=== PATIENT | female | born 1960 | race Caucasian/White ===

== ENCOUNTER 2024-07-17 11:03 | Outpatient (AMB) | payer MEDICARE, MEDICAID, SELFPAY ==
--- NOTE | 2024-07-17 11:31 | A.OFFVIS_ITS ---
Intake Visit Reasons: Right shoulder pain Intake Note: Brenda is a 63 year old female who presents with complaints of progressively worsening right shoulder pain. She describes her pain as sharp in nature. Most of the pain is along the lateral aspect of her right shoulder. She denies any weakness. She has had cortisone injections in the past which gave her fairly good relief. She has tried Tylenol and anti-inflammatory medicines which gave her minimal relief. She continues to play golf for exercise. Allergies No Known Allergies Allergy (Verified 07/17/24 11:31) Physical Exam Const Other: Well-nourished well-developed very friendly female awake alert and oriented x3 in no acute distress Extrem Other: Bilateral upper extremity examination shows good capillary refill, no skin lesions noted, normal sensation light touch Right shoulder examination shows slightly decreased range of motion when co mpared to her left shoulder, 4+ out of 5 strength with supraspinatus testing, positive impingement signs, tenderness over her acromioclavicular joint, no instability Office Procedures Joint Injection/Aspiration Joint Injection/Aspiration Primary Site: right shoulder Prep: site was prepped using aseptic technique Injected: 40 mg of, DepoMedrol and 1% plain lidocaine Procedure: The patient tolerated the procedure well Coding 19282 - Large joint Procedure code (CPT) selection complete Assessment & Plan Assessment & Plan (1) Impingement of right shoulder: Code(s): M25.811 - Other specified joint disorders, right shoulder Category: Medical (2) Right shoulder pain: Code(s): M25.511 - Pain in right shoulder Category: Medical Plan Ms. Pettit presents with right shoulder pain due to impingement syndrome. I had a lengthy discussion with the patient regarding the treatment options. The risks and benefits of a right shoulder cortisone injection were discussed at length with the patient. The patient wished to proceed. She tolerated the injection well. She will continue with her home stretching program. She will contact me prior to her follow-up appointment in 3 months should any questions or concerns arise. Feel free to call me at any time should questions regarding her orthopedic management arise. I spent 20 minutes in reviewing the patient's records and imaging studies, seeing the patient and documenting in the medical record. Orders: Orders XR shoulder RT min 2V Today M25.511 - Pain in right shoulder AMB Joint Injection/Aspiration Today M25.811 - Other specified joint disorders, right shoulder Coding Level of Care Code Est Pt Level 3 (27218) Complex EM visit Add On G2211 Diagnoses Impingement of right shoulder M25.811 Right shoulder pain M25.511 CPT Codes Coding - 66347 Large joint: 04011 - Large joint ([id number])
== END 2024-07-17 11:44 | disposition home or self-care (01) ==
PROVIDERS: Visit Provider Orthopaedic Surgery
DX: M25.811 Other specified joint disorders, right shoulder (principal); M25.511 Pain in right shoulder
CPT/HCPCS: 20610; 99213

== ENCOUNTER 2024-07-17 14:28 | Outpatient (REF) | payer MEDICARE, MEDICAID, SELFPAY ==
--- NOTE | ~2024-07-17 | XR_ITS ---
EXAMINATION: XR SHOULDER, RIGHT CLINICAL INFORMATION: Right shoulder pain. COMPARISON: None available. TECHNIQUE: AP internal rotation and scapular Y views of the right shoulder. FINDINGS: The study is somewhat limited, as no frontal view of the shoulder in external rotation is submitted. The bones and soft tissues appear unremarkable. No fracture identified. Glenohumeral and acromioclavicular alignment is anatomic with normal joint space. No abnormal soft tissue calcification is appreciated on this limited study. Incidentally visualized lower cervical/upper thoracic anterior fixation plate and screws. No evidence of hardware fracture or loosening. XR/XR shoulder RT min 2V IMPRESSION: Findings as above. Electronically signed by: Prabhu Butler MD 07/17/2024 03:50 PM EDT
== END 2024-07-17 14:29 | disposition home or self-care (01) ==
LOC: HO.HOSX 14:28
PROVIDERS: Visit Provider Orthopaedic Surgery
DX: M25.511 Pain in right shoulder (principal); M25.811 Other specified joint disorders, right shoulder
CPT/HCPCS: 20610; 73030; 99212; J1010; J2003

== ENCOUNTER 2024-10-17 11:17 | Outpatient (AMB) | payer MEDICARE, MEDICAID, SELFPAY ==
--- NOTE | 2024-10-17 11:20 | MHC.OFFVIS ---
Vital Signs 10/17/24 11:21 Height 5 ft 6.14 in Weight 325 lb 9.964 oz BMI 52.3 Intake Visit Reasons: Right shoulder pain Intake Note: Brenda is a 64 year old female who presents with complaints of progressively worsening right shoulder pain. She describes her pain as sharp in nature. She has had cortisone injections in the past which gave her fairly good relief. She denies any weakness. She wishes to hold off on surgery for as long as possible. She has tried Tylenol and anti-inflammatory medicines which gave her minimal relief. Allergies No Known Allergies Allergy (Verified 10/17/24 11:20) Physical Exam Vital Signs: BMI result Body Mass Index 52.3 Const Other: Well-nourished well-developed very friendly female awake alert and oriented x3 in no acute distress Extrem Other: Bilateral upper extremity examination shows good capillary refill, no skin lesions noted, normal sensation light touch Right shoulder examination shows almost full range of motion when compared to her left shoulder, 4+ out of 5 strength with supraspinatus testing, positive impingement signs, no instability Office Procedures AMB Joint Injection/Aspiration Joint Injection/Aspiration Primary Site: right shoulder Prep: site was prepped using aseptic technique Injected: 40 mg of, DepoMedrol and 1% plain lidocaine Procedure: The patient tolerated the procedure well Coding 18686 - Large joint Procedure code (CPT) selection complete Assessment & Plan Assessment & Plan (1) Impingement of right shoulder: Code(s): M25.811 - Other specified joint disorders, right shoulder Category: Medical (2) Right shoulder pain: Code(s): M25.511 - Pain in right shoulder Category: Medical Plan Ms. Pettit presents with right shoulder pain due to impingement syndrome. The risks and benefits of a right shoulder cortisone injection were discussed at length with the patient. The patient wished to proceed. She tolerated the injection well. She will continue with her [id number] exercises to prevent stiffness. She will contact me prior to her follow-up appointment in 3 months should any questions or concerns arise. Feel free to call me at any time should questions regarding her orthopedic management arise. I spent 22 minutes in reviewing the patient's records and imaging studies, seeing the patient and documenting in the medical record. Orders: Orders AMB Joint Injection/Aspiration Today M25.811 - Other specified joint disorders, right shoulder Coding Level of Care Code Est Pt Level 3 (74032) Complex EM visit Add On G2211 Diagnoses Impingement of right shoulder M25.811 Right shoulder pain M25.511 CPT Codes Coding - 05036 Large joint: 67332 - Large joint ([id number])
[2024-10-17 11:21] VITALS: BMI 52.3
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
--- OUTSIDE RECORDS SUMMARY | 2024-10-17 11:39 | XMS_ITS | Data Portability ---
Author Organization [facility] Address [address] [facility] [address] [place] [address] Care Team Providers Care Data Center Consultant Name Role Phone SALAZAR BILLS Primary Care Provider Assessment Encounter Date Assessment Date Assessment LastModified by Organization Details LastModified Time 08/17/2016 08/17/2016 Brenda Pettit is a 55 year old woman with complaints of pain in her right thigh which started in 2006 and she is having an exacerbation of her pain for the past two years. On exam, she has good range of motion of her lumbar spine. Straight leg raising test is negative. I recommend an EMG/NCV study to elucidate the etiology of her pain. She will follow up to the review the results and formulate treatment plans. [email or web address] Not available 08/22/2016 15:21:09 09/24/2016 09/24/2016 Brenda Pettit is a 55 year old woman with complaints of pain in her right thigh which started in 2006 and she is having an exacerbation of her pain for the past two years. On exam, she has good range of motion of her lumbar spine. Straight leg raising test is negative. 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 I have given her a sample of Gralise to trial and she will call in two weeks. I will also refer her to neurology for further treatment plans . [email or web address] Not available 10/15/2016 11:21:57 10/28/2016 10/28/2016 Brenda Pettit is a 56 year old woman with complaints of pain in her right thigh which started in 2006 and she is having an exacerbation of her pain for the past two years. On exam, she has good range of motion of her lumbar spine. Straight leg raising test is negative. She is here for a follow up after trialing sample of gralise 600mg with the evening meal and reports good ongoing pain benefit. 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 I will prescribe Gralise 600mg . She will follow up in December after neurology appointment. [email or web address] Not available 10/29/2016 09:24:31 12/16/2016 12/16/2016 Brenda Pettit is a 56 year old woman with complaints of pain in her right thigh which started in 2006 and she is having an exacerbation of her pain for the past two years. On exam, she has good range of motion of her lumbar spine. Straight leg raising test is negative. She has stopped Gralise as she feels she was not getting any pain benefit and was feeling drowsy during the day. 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 She has seen neurology and is having medication adjustments done. She wants to trial Lateral femoral cutaneous nerve block again and get a cryoablation done. I have explained that I do not do cryoablations in my office and have advised her to follow neurology referral for the same. She can follow up with me as needed. [email or web address] Not available 12/30/2016 20:37:31 Plan of Treatment Reminders Order Date Submit Date Provider Last Modified By Organization Details Last Modified Time Details Appointments None recorded. Lab None recorded. Referral neurologist referral 2015 017 [facility], [address], [address], 17:02:56 Procedures None recorded. Surgeries None recorded. Imaging None recorded. Medication Orders Gralise 600 mg tablet,exte nded release 2016 017 [email or web address] [id number], [address] [facility], [place], [place], [id number], 13:55:15 Patient TargetsNo targets recorded. Patient Instructions Encounter Date Encounter Id Patient Instructions Last Modified By Organization Details Last Modified Time 08/17/2016 [id number] She was advised to continue with activities as tolerated. [email or web address] Not available 08/22/2016 15:21:27 09/24/2016 [id number] She was advised to continue with activities as tolerated. [email or web address] Not available 10/07/2016 14:41:56 10/28/2016 [id number] She was advised to continue with activities as tolerated. [email or web address] Not available 10/29/2016 09:22:47 12/16/2016 [id number] She was advised to continue with activities as tolerated. [email or web address] Not available 12/30/2016 20:33:50 Reason for Referral Neurologist Referral for Per ipheral neuropathic pain Patient has pain in right lower extremity. EMG/NCV study shows poly neuropathy. Referring Physician: Shahram Song, Pain Management, Encounter Date: 09/24/2016 Results Created Date Observation Date Name Description Value Unit Range Abnormal Flag Note LastModifiedBy Organization Detail LastModifiedTime 09/22/20 16 09/17/2016 nerve condu ction study /EMG (PROC ) No observ ation record ed. [email or web address] [address], [address], 09/27/2016 14:17:15 Result Notes None recorded. Procedures Surgical History Date Name Laterality Status Provider Name and Address Organization Details Recorded Time 08/10/20 11 Joint Replacement completed Lexus Brunson [facility] - [facility] 08/17/2016 14:38:13 Joint Replacement completed Lexus Brunson [facility] - [facility] 08/17/2016 14:39:07 Hernia Repair completed Lexus Brunson [facility] - [facility] 08/17/2016 14:39:33 Hysterectomy completed Lexus Brunson [facility] - [facility] 08/17/2016 14:39:54 Imaging Results Imaging Date Name Status LastModified by Organiz ation Details LastModified Time 09/17/2016 nerve conduction study/EMG (PROC) completed [email or web address], [address], 09/27/2016 14:17:15 Procedure Notes None recorded. Medical Equipment None Reported. Allergies Allergen ID Allergen Name Allergen Category Reaction Reaction Severity Criticality Documentation Date Start Date Code Code System Note Provider Name and Address Organization Details Recorded Time 89763 adhesive environme nt,medica tion other Not available Not available 08/17/2016 Skin break down Lexus william MA - [facility] 6 14:29:32 99461 succinylc holine Not available Not available Not available Not available 08/17/2016 82156 RxNorm Deep jimbo givens Lexus william MA - [facility] 6 14:30:27 Medications Name Sig Start Date Stop Date Status Note LastModified by Organization Details LastModified Time fluoxetine 40 mg capsule TK ONE C PO D 12/16 completed Not Available Not Available Not Available amoxicillin 500 mg capsule 12/16 completed Not Available Not Available Not Available venlafaxine ER 37.5 mg capsule,ext ended release 24 hr 09/24 completed Not Available Not Available Not Available venlafaxine ER 75 mg capsule,ext ended release 24 hr 08/17 completed Not Available Not Available Not Available ibuprofen 800 mg tablet TK 1 T PO TID WITH MEALS PRF JOINT PAIN active Not Available Not Available No t Available hydrocodone 5 mg-acetamin ophen 325 mg tablet active Not Available Not Available No t Available prednisone 20 mg tablet 09/24 completed Not Available Not Available Not Available oxcarbazepi ne 300 mg tablet TK 1 T PO BID active pt taking 1 tab in AM and 2 tabs in PM Not Available Not Available Not Available doxepin 10 mg capsule 09/24 completed Not Available Not Available Not Available oxycodone 15 mg tablet active Not Available Not Available Not Available oxycodone-a cetaminophe n 5 mg-325 mg tablet 09/24 completed Not Available Not Available Not Available fluoxetine 20 mg tablet active Not Available Not Available Not Available mupirocin 2 % topical ointment 08/17 completed Not Available Not Available Not Available polyethylen e glycol 3350 17 gram/dose oral powder 09/24 completed Not Available Not Available Not Available amoxicillin 875 mg-potassiu m clavulanate 125 mg tablet 09/24 completed Not Available Not Available Not Available Gralise 600 mg tablet,exte nded release Take 1 tablet every day by oral route at dinner for 30 days. 12/16 completed Not Available Not Available Not Available Vitals Date Recorded Heart rate Oxygen saturation Oxygen saturation in Arterial blood by Pulse oximetry Body height Body weight Body mass index (BMI) Systolic blood pressure Diastolic blood pressure Provider Name and Address Organization Details Last Updated DateTime 6 92 /min 97 % 97 % 167.64 cm 606587. 66 g 57.9 kg/m2 189 mm[Hg] 81 mm[Hg] Lexus Brunson MA - [facility] 6 14:25:47 Date Recorded Body height Heart rate Oxygen saturation Oxygen saturation in Arterial blood by Pulse oximetry Systolic blood pressure Diastolic blood pressure Provider Name and Address Organization Details Last Updated DateTime 6 167.64 cm 87 /min 98 % 98 % 172 mm[Hg] 61 mm[Hg] Lexus Brunson MA - [facility] 6 10:55:47 Date Recorded Body height Heart rate Oxygen saturation Oxygen saturation in Arterial blood by Pulse oximetry Systolic blood pressure Diastolic blood pressure Provider Name and Address Organization Details Last Updated DateTime 7 167.64 cm 77 /min 98 % 98 % 161 mm[Hg] 66 mm[Hg] Lexus Brunson MA - [facility] 7 13:35:26 Date Recorded Body height Heart rate Oxygen saturation Oxygen saturation in Arterial blood by Pulse oximetry Systolic blood pressure Diastolic blood pressure Provider Name and Address Organization Details Last Updated DateTime 7 167.64 cm 88 /min 97 % 97 % 160 mm[Hg] 59 mm[Hg] Lexus Brunson MA - [facility] 7 13:52:24 Social History Question Answer Notes LastModified by Organizat ion Details LastModified Time Tobacco Smoking Status Never Smoker Not Available [facility] 03:16:12 What Is Your Level Of Alcohol Consumption? None [id number] Information not available 07/25/2020 Are You Currently Employed? No [id number] Information not available 07/25/2020 Which Illicit Or Recreational Drugs Have You Used? No [id number] Information not available 07/25/2020 Live Alone Or With Others? Alone Information not available 08/17/2016 Marital Status Informatio n not available 08/17/2016 Sex: Unknown Functional Status None recorded. Mental Status None recorded. Family History Relationship Description Onset Age of this Age Resolved Age Notes LastModified by Organization Details LastModified Time Mother Diabetes mellitus [email or web address] Not available 2015 14:35:18 Brother Diabetes mellitus [email or web address] Not available 2015 14:35:18 Father Diabetes mellitus [email or web address] Not available 2015 14:35:18 Medical History Condition Response Headache Y Cancer Y Arthritis Y Gynecological HistoryNo gynecological history recorded. Obstetrics History GPAL:G 0 P 0 0 0 0 Past Encounters Encounter ID Performer Location Encounter Start Date Encounter Closed Date Diagnosis/Indication Diagnosis SNOMED-CT Code Diagnosis ICD10 Code Diagnosis Note [id number] Shahram Song MD PAIN OFFICE [address] [place] [address] 08/17/2016 13:33:46 08/22/2016 15:28:24 Pain in lower limb 06126187 M79.604 Peripheral neuropathic pain 850053476 M79.2 [id number] Shahram Song MD PAIN OFFICE [address] [place] [address] 09/24/2016 10:49:06 10/07/2016 14:52:21 Pain in lower limb 83682747 M79.604 Peripheral neuropathic pain 686919041 M79.2 [id number] Shahram Song MD PAIN OFFICE [address] [place] [address] 10/28/2016 13:14:48 10/29/2016 09:33:55 Pain in lower limb 82646629 M79.604 Peripheral neuropathic pain 367534068 M79.2 [id number] Shahram Song MD PAIN OFFICE [address] [place] [address] 12/16/2016 13:13:09 12/30/2016 20:38:30 Pain in lower limb 82884079 M79.604 Peripheral neuropathic pain 748700972 M79.2 Health Concerns Section Related Observation LastModified by Organization Detai ls LastModified Time None Recorded Concern Status LastModified by Organization Details LastModified Time None Recorded Advance Directives Directive None Recorded Payers Encounter Date Sequence Insurance Name Policy Number Policy Cardenas Covered Member ID Cardenas Member ID Guarantor Name 08/17/2016 1 MEDICARE B-[place]: [facility] [employer] Brenda Pettit [id number] Brenda Pettit 08/17/2016 2 [place] Brenda Arbour [id number] Brenda Arbour 09/24/2016 1 [place] [employer] Brenda L Arbour [id number] Brenda Arbour 09/24/2016 2 [place] Brenda Arbour [id number] Brenda Arbour 10/28/2016 1 [place] [employer] Brenda L Arbour [id number] Brenda Arbour 10/28/2016 2 [place] Brenda Arbour [id number] Brenda Arbour 12/16/2016 1 [place] [employer] Brenda L Arbour [id number] Brenda Arbour 12/16/2016 2 [place] Brenda Arbour [id number] Brenda Arbour Notes Date Note Type Note Provider Name and Address Organization Details Recorded Time 08/17/2016 text/html Brenda Pettit is a 55 year old woman with complaints of pain in her right lower extremity. She states she has been having pain for he past 7 years with exacerbation for the past two years . She is S/P total knee replacement bilaterally. Right knee was in 2014 and left knee was done in 2010. After the left knee replacement , she reports feeling a pop in the right groin region followed by a lump and intense pain. The pain is persisting in her right thigh with numbness in her right leg. She describes the pain as sharp stabbing, shooting pain with numbness which occurs on standing. Current pain level is high. Pain is aggravated by standing and sitting upright. Pain is relieved by rest. She states she wears only loose clothing. She has no history of low back pain, bladder or bowel incontinence.She had been seen at [facility] pain management in 2011 and had a lateral femoral cutaneous nerve block under ultrasound guidance by Dr. Porter which she states did not help.She takes Ibuprofen, vicodin and oxcarbazepine with some pain benefit. 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 Shahram Song MD [address] [facility] , [address], [place], [address], [facility] 10/15/2016 11:22:01 10/28/2016 text/html She is here for a follow up after trialing gralise for her neuropathic pain in her lower extremities. She reports good pain benefit. She is taking 600mg Gralise with the evening meal. She reports feeling slightly tired during the day. She states she is cleaning the house and is active around the house. She has no history of bladder or bowel incontinence. Shahram Song MD [address] [facility] , [facility] [address], [place], [address], [facility] 10/29/2016 11:55:48 12/16/2016 text/html She is here for a follow up. She has seen neurologist . She has recommended increasing Oxcarbazepine and to see if her leg pain improves with the increased dose. She is working with her PCP who has prescribed Oxcarbazepine . She stopped the Gralise as it was making her too tired. She states she is trying to lose weight. She wants to revisit lateral femoral cutaneous nerve block and is interested in RFA or cryoablation. Shahram Song MD [address] [facility] , [facility] [address], [place], [address], [facility] 01/03/2017 09:47:30 OBGyn Episode No OBEpisode recorded.
== END 2024-10-17 11:53 | disposition home or self-care (01) ==
PROVIDERS: Visit Provider Orthopaedic Surgery
DX: M25.811 Other specified joint disorders, right shoulder (principal); M25.511 Pain in right shoulder
CPT/HCPCS: 20610; 99213

== ENCOUNTER → 2024-10-17 11:17 | Outpatient (BNVA) | payer MEDICARE, MEDICAID, SELFPAY | PROVIDERS: Visit Provider Orthopaedic Surgery | DX: M25.811 Other specified joint disorders, right shoulder (principal); M25.511 Pain in right shoulder | CPT/HCPCS: 20610; 99212; J1010; J2003 ==

== ENCOUNTER 2025-02-13 12:53 | Outpatient (AMB) | payer MEDICARE, MEDICAID, SELFPAY ==
--- NOTE | 2025-02-13 12:54 | MHC.OFFVIS ---
Vital Signs 02/13/25 12:57 Height 5 ft 6.14 in Weight 325 lb BMI 52.2 Intake Visit Reasons: Right shoulder pain Intake Note: Brenda is a 64 year old female who presents with complaints of right shoulder pain. She describes her pain as sharp in nature. She denies any weakness. She has done physical therapy exercises which aggravated her pain. She has also tried Tylenol and anti-inflammatory medicines which gave her mild relief. She has had cortisone injections in the past which gave her fairly good relief. She wishes to hold off on surgery if at all possible. Allergies No Known Allergies Allergy (Verified 02/13/25 12:57) Medication List - Last Reconciled 02/14/25 by Lencho West MD losartan 50 mg PO DAILY peg 3350-electrolytes 236-22.74-6.74 -5.86 gram (GaviLyte-G) mL PO tirzepatide (weight loss) (Zepbound) mg subcut Physical Exam Vital Signs: BMI result Body Mass Index 52.2 Const Other: Well-nourished well-developed very friendly female awake alert and oriented x3 in no acute distress Extrem Other: Bilateral upper extremity examination shows good capillary refill, no skin lesions noted, normal sensation light touch Right shoulder examination shows slightly decreased range of motion when compared to her left shoulder, 4+ out of 5 strength with supraspinatus testing, positive impingement signs, no instability Office Procedures AMB Joint Injection/Aspiration Joint Injection/Aspiration Primary Site: right shoulder Prep: site was prepped using aseptic technique Injected: 40 mg of and 1% plain lidocaine Procedure: The patient tolerated the procedure well Coding 71942 - Large joint Procedure code (CPT) selection complete Assessment & Plan Assessment & Plan (1) Impingement of right shoulder: Code(s): M25.811 - Other specified joint disorders, right shoulder Category: Medical (2) Right shoulder pain: Code(s): M25.511 - Pain in right shoulder Category: Medical Plan Ms. Pettit presents with right shoulder pain due to impingement syndrome. The risks and benefits of a right shoulder cortisone injection were discussed at length with the patient. The patient wished to proceed. She tolerated the injection well. She will continue with her home exercise program. She will contact me prior to her follow-up appointment in 3 months should any questions or concerns arise. Feel free to call me at any time should questions regarding her orthopedic management arise. I spent 22 minutes in reviewing the patient's records and imaging studies, seeing the patient and documenting in the medical record. Orders: Orders AMB Joint Injection/Aspiration 02/13/25 M25.811 - Other specified joint disorders, right shoulder Coding Level of Care Code Est Pt Level 3 (06179) Complex EM visit Add On G2211 Diagnoses Impingement of right shoulder M25.811 Right shoulder pain M25.511 CPT Codes Coding - 06169 Large joint: 17273 - Large joint ([id number])
[2025-02-13 12:57] VITALS: BMI 52.2
--- OUTSIDE RECORDS SUMMARY | 2025-02-13 13:57 | XMS_ITS | Clinical Summary ---
Author Organization [facility] Address [address] [place] [address] Care Team Providers Care Baby Doctor Name Role Phone Dylan Cunha MD Primary Care Provider [phone] Surgical History Surgery Date Site/Laterality Comments JOINT REPLACEMENT PROCEDURE:JOINT REPLACEMENT SHOULDER SURGERY PROCEDURE:SHOULDER SURGERY Medical History Medical History Date Comments Neuralgia DX:Neuralgia Social History Tobacco Use Types Packs/Day Years Used Date Smoking Tobacco: Never Assessed Comments Unknown Sex and Gender Information Value Date Recorded Sex Assigned at Not on file Legal Sex Female 10:06 AM EST Gender Identity Not on file Sexual Orientation Not on file Obstetrics History Plan of Treatment Health Maintenance Due Date Last Done Comments Breast Cancer Screening 1960 DTaP,Tdap,and Td Vaccines (1 - Tdap) 1979 Cervical Cancer Screening: P ap Smear 1981 Pneumococcal Vaccine: 50+ Ye ars (1 of 1 - PCV) 2010 Zoster Vaccines (1 of 2) 2010 Colorectal Cancer Screening: Colonoscopy 09/07/2022 Depression Screening 09/07/2022 HIV Screening 09/07/2022 Hepatitis C Screening 09/07/2022 Social Influencers of Health Screening 09/07/2022 COVID-19 Vaccine ( - 2023-2 5 season) 2024 Influenza Vaccine (Season Ended) 2025 RSV Immunization Adult Patie nts (1 - 1-dose 75+ series) 2035 HIB Vaccines Aged Out No longer eligi ble based on patient's age to complete this topic HPV Vaccines Aged Out No longer eligi ble based on patient's age to complete this topic Hepatitis A Vaccines Aged Out No long er eligible based on patient's age to complete this topic Hepatitis B Vaccines Aged Out No long er eligible based on patient's age to complete this topic IPV Vaccines Aged Out No longer eligi ble based on patient's age to complete this topic MMR Vaccines Aged Out No longer eligi ble based on patient's age to complete this topic Meningococcal ACWY Vaccine Aged Out N o longer eligible based on patient's age to complete this topic Meningococcal B Vaccine Aged Out No l onger eligible based on patient's age to complete this topic Pneumococcal Vaccine: Pediat rics (0 to 5 Years) and At-Risk Patients (6 to 64 Years) Aged Out No longer eligible b ased on patient's age to complete this topic RSV Immunization Patients Un lakshmi 20 months Aged Out No longer eligible b ased on patient's age to complete this topic Varicella Vaccines Aged Out No longer eligible based on patient's age to complete this topic Advance Directives Documents on File Type Date Recorded 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 Health Care Decision (hx) 08/11/2020 AD [employer] DIRECTIVE Health Care Decision (hx) 08/11/2020 AD [employer] DIRECTIVE Health Care Decision (hx) 08/11/2020 AD [employer] DIRECTIVE Health Care Decision (hx) 08/11/2020 AD [employer] DIRECTIVE Health Care Decision (hx) 08/11/2020 AD [employer] DIRECTIVE Health Care Decision (hx) 08/11/2020 AD [employer] DIRECTIVE Health Care Decision (hx) 08/11/2020 AD [employer] DIRECTIVE Health Care Decision (hx) 08/11/2020 AD [employer] DIRECTIVE Health Care Decision (hx) 08/11/2020 AD [employer] DIRECTIVE Health Care Decision (hx) 08/11/2020 AD [employer] DIRECTIVE Health Care Decision (hx) 08/11/2020 AD [employer] DIRECTIVE Care Teams Baby Doctor Relationship Specialty Start Date End Date Dylan Cunha MD [address] [place] [address] PCP - General Internal Medicine 08/01/17
--- OUTSIDE RECORDS SUMMARY | 2025-02-13 13:57 | XMS_ITS | Clinical Summary ---
Author Organization [facility] Address [address] [place] [address] Care Team Providers Care Office Communication Professor Name Role Phone Dylan Cunha MD Primary Care Provider [phone] Allergies Active Allergy Reactions Criticality Noted Date Comments Adhesive Tape 02/15/2018 Hydromorphone Succinylcholine Medications Medication Sig Dispensed Refills Start Date End Date Status losartan (COZAAR) tablet 50 mg TK 1 T PO D 11 01/23/2018 Active ibuprofen (ADVIL,MOTRIN) 800 MG tablet TK 1 T PO TID WITH MEALS 1 12/23/2017 Active FLUoxetine (PROzac) 20 MG capsule TK 1 C PO ONCE D 9 09/10/2018 Active OXcarbazepine (TRILEPTAL) 300 MG tablet oxcarbazepine 300 mg tablet 0 Active ibuprofen (ADVIL,MOTRIN) 800 MG tablet ibuprofen 800 mg tablet TK 1 T PO TID WITH MEALS PRF JOINT PAIN 0 Active losartan (COZAAR) tablet 25 mg TK 1 T PO D 11 04/14/2019 Active DULoxetine (CYMBALTA) DR capsule 30 mg TK ONE C PO D 11 06/04/2019 Active naproxen (NAPROSYN) 500 MG tablet TK 1 T PO BID 0 07/22/2019 Active venlafaxine (EFFEXOR) 37.5 MG tablet TK 1 T PO BID 11 07/10/2019 Active sulfamethoxazole-t rimethoprim (BACTRIM DS) 800-160 MG per tablet Take one tab twice daily 20 tablet 0 07/24/2019 Active oxyCODONE (ROXICODONE) 5 MG immediate release tablet 1-2 tabs p.o. every 4 to 6 hours as needed for pain. May fill for lesser quantity. 40 tablet 0 07/24/2019 Active diclofenac (VOLTAREN) 50 MG EC tablet 0 06/04/2020 Active gabapentin (NEURONTIN) 300 MG capsule TK 1 C PO D HS 0 03/17/2020 Active prazosin (MINIPRESS) 5 MG capsule TK 2 CS PO D HS 0 02/29/2020 Active oxyCODONE (ROXICODONE) 5 MG immediate release tablet Take 1-2 tabs every 4 hours as needed for pain 50 tablet 0 07/22/2020 Active amoxicillin-clavul anate (AUGMENTIN) 875-125 MG per tablet 0 07/28/2021 Active HYDROcodone-acetam inophen (NORCO) 5-325 MG per tablet TAKE 1 TABLET BY MOUTH FIVE TIMES DAILY NEEDED FOR MODERATE PAIN 0 07/10/2021 Active Active Problems Problem Noted Date Diagnosed Date Subacromial bursitis of left shoulder joint 05/11 Impingement syndrome of left shoulder 06/05/2020 Shoulder impingement, right 10/05/2018 Subacromial bursitis of right shoulder joint Social History Tobacco Use Types Packs/Day Years Used Date Smoking Tobacco: Never Assessed Sex and Gender Information Value Date Recorded Sex Assigned at Not on file Gender Identity Not on file Sexual Orientation Not on file Job Start Date Occupation Industry Not on file Not on file Not on file Last Filed Vital Signs Vital Sign Reading Time Taken Comments Blood Pressure - - Pulse - - Temperature - - Respiratory Rate - - Oxygen Saturation - - Inhaled Oxygen Concentration - - Weight 149.7 kg (330 lb) 07/30/2021 12:59 PM EDT Height 167.6 cm (5' 6 ) 07/30/2021 12:59 PM EDT Body Mass Index 53.26 07/30/2021 12:59 PM EDT Plan of Treatment Health Maintenance Due Date Last Done Comments Hepatitis C Screening 1960 COVID-19 Vaccine (#1) 03/19/1961 Depression Screening 1972 BMI Counseling 1978 Preventative Health Evaluation 1978 Cervical Cancer Screening (Pap Smear) 1981 DTap / Tdap / Td (1 - Tdap) 06/11/2002 06/10/2002 Colon Cancer Screening (Colonoscopy) 2005 Breast Cancer Screening (Mammogram) 2010 Shingrix-Zoster Vaccine (1 of 2) 2010 Influenza Vaccine (#1) 2024 0, 07/09/2019, 07/14/2018, Additional history exists Pneumococcal Vaccine (2 of 2 - PCV) 2025 05/24/2018 RSV Adult > 60+ Yrs or (1 - 1-dose 75+ series) 2035 Pneumococcal Vaccine Aged Out 05/24/2018 No long er eligible based on patient's age to complete this topic Hepatitis B Vaccines Aged Out No long er eligible based on patient's age to complete this topic RSV Ped < 20 months Aged Out No longe r eligible based on patient's age to complete this topic Care Teams Office Communication Professor Relationship Specialty Start Date End Date Dylan Cunha MD [address] [place] [address] PCP - General Internal Medicine 08/01/17
--- OUTSIDE RECORDS SUMMARY | 2025-02-13 13:57 | XMS_ITS | Data Portability ---
Author Organization [facility] Address [address] [facility] [address] [place] [address] Care Team Providers Care Fiberglass Luggage Molder Name Role Phone SALAZAR BILLS Primary Care [...] None recorded. Referral neurologist referral 2015 017 [facility], [address], [address], 17:02:56 Procedures None recorded. Surgeries None recorded. Imaging None recorded. Medication Orders Gralise 600 mg tablet,exte nded release 2016 017 [email or web address] [id number], [address] [facility], [place], [place], [id number], 13:55:15 Patient TargetsNo targets recorded. Patient Instructions Encounter Date Encounter Id Patient Instructions Last Modified By Organization Details Last Modified Time 08/17/2016 [id number] She was advised to continue with activities as tolerated. [email or web address] Not available 08/22/2016 15:21:27 09/24/2016 [id number] She was advised to continue with activities as tolerated. [email or web address] Not available 10/07/2016 14:41:56 10/28/2016 [id number] She was advised to continue with activities as tolerated. [email or web address] Not available 10/29/2016 09:22:47 12/16/2016 [id number] She was advised to continue with activities [...] (PROC ) No observ ation record ed. [email or web address] [address], [address], 09/27/2016 14:17:15 Result Notes None recorded. Procedures [...] 09/17/2016 nerve conduction study/EMG (PROC) completed [email or web address], [address], 09/27/2016 14:17:15 Procedure Notes None recorded. Medical Equipment None Reported. Allergies Allergen ID Allergen Name Allergen Category Reaction Reaction Severity Criticality Documentation Date Start Date Code Code System Note Provider Name and Address Organization Details Recorded Time 31064 adhesive environme nt,medica tion other Not available Not available 08/17/2016 34030 UNK Skin break down Lexus william, [place] [facility] 14:29:32 16984 succinylc holine Not available Not available Not available Not available 08/17/2016 64452 RxNorm Deep jimbo Alberts Boy william [place] - [facility] 6 14:30:27 Medications Name Sig [...] /min 97 % 97 % 167.64 cm 844118. 66 g 57.9 kg/m2 189 mm[Hg] 81 mm[Hg] Lexus Brunson [place] - [facility] 6 14:25:47 Date Recorded Body height Heart rate Oxygen saturation Oxygen saturation in Arterial blood by Pulse oximetry Systolic blood pressure Diastolic blood pressure Provider Name and Address Organization Details Last Updated DateTime 6 167.64 cm 87 /min 98 % 98 % 172 mm[Hg] 61 mm[Hg] Lexus Brunson [place] - [facility] 6 10:55:47 Date Recorded Body height Heart rate Oxygen saturation Oxygen saturation in Arterial blood by Pulse oximetry Systolic blood pressure Diastolic blood pressure Provider Name and Address Organization Details Last Updated DateTime 7 167.64 cm 77 /min 98 % 98 % 161 mm[Hg] 66 mm[Hg] Lexus Brunson [place] - [facility] 7 13:35:26 Date Recorded Body height Heart rate Oxygen saturation Oxygen saturation in Arterial blood by Pulse oximetry Systolic blood pressure Diastolic blood pressure Provider Name and Address Organization Details Last Updated DateTime 7 167.64 cm 88 /min 97 % 97 % 160 mm[Hg] 59 mm[Hg] Lexus Brunson [place] - [facility] 7 13:52:24 Social History Question Answer Notes LastModified by Organizat ion Details LastModified Time Tobacco Smoking Status Never Smoker Not Available [facility] 07/25/2020 03:16:12 What Is Your Level Of Alcohol Consumption? None [id number] Information not available 07/25/2020 Are You Currently Employed? No [id number] Information not available 07/25/2020 Which Illicit Or Recreational Drugs Have You Used? No [id number] Information not available 07/25/2020 Live Alone Or [...] available 2015 14:35:18 Medical History Condition Response Arthritis Y Cancer Y Headache Y Gynecological HistoryNo gynecological history recorded. Obstetrics History GPAL:G 0 P 0 0 0 0 Past Encounters Encounter ID Performer Location Encounter Start Date Encounter Closed Date Diagnosis/Indication Diagnosis SNOMED-CT Code Diagnosis ICD10 Code Diagnosis Note [id number] Shahram Song MD PAIN OFFICE [address] [place] [address] 08/17/2016 13:33:46 08/22/2016 15:28:24 Pain in lower limb 17798900 M79.604 Peripheral neuropathic pain 927666883 M79.2 [id number] Shahram Song MD PAIN OFFICE [address] [place] [address] 09/24/2016 10:49:06 10/07/2016 14:52:21 Pain in lower limb 74048718 M79.604 Peripheral neuropathic pain 408869234 M79.2 [id number] Shahram Song MD PAIN OFFICE [address] [place] [address] 10/28/2016 13:14:48 10/29/2016 09:33:55 Pain in lower limb 40350167 M79.604 Peripheral neuropathic pain 245362892 M79.2 [id number] Shahram Song MD PAIN OFFICE [address] [place] [address] 12/16/2016 13:13:09 12/30/2016 20:38:30 Pain in lower limb 39066221 M79.604 Peripheral neuropathic pain 987695666 M79.2 Health Concerns Section Related Observation LastModified by Organization Detai ls LastModified Time None Recorded Concern Status LastModified by Organization Details LastModified Time None Recorded Advance Directives Directive None Recorded Payers Encounter Date Sequence Insurance Name Policy Number Policy Cardenas Covered Member ID Cardenas Member ID Guarantor Name 08/17/2016 1 [place] [employer] Brenda Pettit [id number] Brenda Pettit 08/17/2016 2 [place] Brenda Arbour [id number] Brenda Arbour 09/24/2016 1 [place] [employer] Brenda L Arbour [id number] Brenda Arbour 09/24/2016 2 [place] Brenda Arbour [id number] Brenda Arbour 10/28/2016 1 [place] [employer] Brenda L Arbour [id number] Brenda Arbour 10/28/2016 2 [place] Brenda Arbour [id number] Brenda Arbour 12/16/2016 1 [place] [employer] Brenda L Arbour [id number] Brenda Arbour 12/16/2016 2 [place] Brenda Arbour [id number] Brenda Arbour Notes Date Note Type Note [...] or bowel incontinence.She had been seen at [facility] pain management in 2011 and had a lateral femoral cutaneous nerve block under ultrasound guidance by Dr. Porter which she states did not help.She takes Ibuprofen, vicodin and oxcarbazepine with some pain benefit. 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 Shahram Song MD [address] [facility] , [facility] [address], [place], [address], [facility] 10/15/2016 11:22:01 10/28/2016 [...] or bowel incontinence. Shahram Song MD [address] [facility] , [facility] [address], [place], [address], [facility] 10/29/2016 11:55:48 12/16/2016 [...] RFA or cryoablation. Shahram Song MD [address] [facility] , [address], [place], [address], [facility] 01/03/2017 09:47:30 OBGyn Episode No OBEpisode recorded.
== END 2025-02-13 13:18 | disposition home or self-care (01) ==
LOC: HO.HOS 12:53
PROVIDERS: Visit Provider Orthopaedic Surgery
DX: M25.811 Other specified joint disorders, right shoulder (principal); M25.511 Pain in right shoulder
CPT/HCPCS: 20610; 99213

== ENCOUNTER → 2025-02-13 12:53 | Outpatient (BNVA) | payer MEDICARE, MEDICAID, SELFPAY | PROVIDERS: Visit Provider Orthopaedic Surgery | DX: M25.811 Other specified joint disorders, right shoulder (principal); M25.511 Pain in right shoulder | CPT/HCPCS: 20610; 99212; J1010; J2003 ==

== ENCOUNTER 2025-05-21 11:21 | Outpatient (AMB) | payer MEDICARE, MEDICAID, SELFPAY ==
--- NOTE | 2025-05-21 11:26 | MHC.OFFVIS ---
Vital Signs 05/21/25 11:34 Height 5 ft 6 in Weight 295 lb BMI 47.6 Intake Visit Reasons: Inj -Rt shoulder cortisone inj-Last 02/13/25 Intake Note: Brenda is a 64 year old female who presents today for a Right shoulder cortisone injection-Last injection 02/13/25. At today's visit she reports that the injection did give relief and that her ROM is still very limited. She continues with her home stretching program. She has taken Tylenol and anti-inflammatory medicines which gave her mild relief. Allergies adhesive tape Allergy (Intermediate, Verified 05/21/25 11:32) Rash hydromorphone (From Dilaudid) Adverse Reaction (Severe, Verified 05/21/25 11:32) Drowsy succinylcholine Adverse Reaction (Severe, Verified 05/21/25 11:34) Unknown Medication List - Last Reconciled 05/21/25 by Lencho West MD losartan 50 mg PO DAILY peg 3350-electrolytes 236-22.74-6.74 -5.86 gram (GaviLyte-G) mL PO tirzepatide (weight loss) (Zepbound) mg subcut Physical Exam Vital Signs: BMI result Body Mass Index 47.6 Const Other: Well-nourished well-developed very friendly female awake alert and oriented x3 in no acute distress Extrem Other: Right shoulder examination shows slightly decreased range of motion when compared to her left shoulder, 4+ out of 5 strength with supraspinatus testing, positive impingement signs, no instability Office Procedures AMB Joint Injection/Aspiration Joint Injection/Aspiration Primary Site: right shoulder Prep: site was prepped using aseptic technique Injected: 40 mg of, DepoMedrol and 1% plain lidocaine Procedure: The patient tolerated the procedure well Coding 26709 - Large joint Procedure code (CPT) selection complete Assessment & Plan Assessment & Plan (1) Impingement of right shoulder: Code(s): M25.811 - Other specified joint disorders, right shoulder Category: Medical Plan Ms. Pettit presents with right shoulder pain due to impingement syndrome. The risks and benefits of a right shoulder cortisone injection were discussed at length with the patient. The patient wished to proceed. She tolerated the injection well. She will continue with her home exercise program. She will contact me prior to her follow-up appointment in 3 months should any questions or concerns arise. Feel free to call me at any time should questions regarding her orthopedic management arise. I spent 20 minutes in reviewing the patient's records and imaging studies, seeing the patient and documenting in the medical record. Orders: Orders AMB Joint Injection/Aspiration Today M25.811 - Other specified joint disorders, right shoulder Coding Level of Care Code Est Pt Level 3 (17919) Complex EM visit Add On G2211 Diagnoses Impingement of right shoulder M25.811 CPT Codes Coding - 10958 Large joint: 24985 - Large joint ([id number])
[2025-05-21 11:34] VITALS: BMI 47.6
--- OUTSIDE RECORDS SUMMARY | 2025-05-21 12:29 | XMS_ITS | Encounter Summary ---
Author Organization [facility] Address [address] [place] [address] Care Team Providers Care Retail Management Keyholder Name Role Phone Dylan Cunha MD Primary Care Provider [phone] Encounter Details Date Type Department Care Team (Late st Contact Info) Description 05/04/2025 Lab Requisition [facility] - Main Lab [address] [place] [address] Sim Brewer MD [address] [place] [address] Essential (primary) hypertension Social History Tobacco Use Types Packs/Day Years Used Date Smoking Tobacco: Never Assessed Comments Unknown Sex and Gender Information Value Date Recorded Sex Assigned at Not on file Legal Sex Female 10:06 AM EST Gender Identity Not on file Sexual Orientation Not on file documented as of this encounter Plan of Treatment Not on file documented as of this encounter Procedures Procedure Name Priority Date/Time Associated Diagnosis Comments COMPLETE BLOOD COUNT Routine 05/06/2025 5:20 AM EDT Essential (primary) hypertension BASIC METABOLIC PANEL Routine 05/06/2025 5:20 AM EDT Essential (primary) hypertension documented in this encounter Results * (ABNORMAL) Basic metabolic panel (05/06/2025 5:20 AM EDT) Sodium 140 133 - 145 mmol/L LAB CHEMISTRY METHOD 05/06/2025 10:33 AM EDT [facility] Potassium 3.5 3.5 - 5.5 mmol/L LAB CHEMISTRY METHOD 05/06/2025 10:33 AM EDT [facility] Chloride 108 96 - 110 mmol/L LAB CHEMISTRY METHOD 05/06/2025 10:33 AM [facility] CO2 28 21 - 32 mmol/L LAB CHEMISTRY METHOD 05/06/2025 10:33 AM [facility] Anion Gap 4 3 - 11 LAB CHEMISTRY METHOD 05/06/2025 10:33 AM [facility] Glucose 74 70 - 100 mg/dL LAB CHEMISTRY METHOD 05/06/2025 10:33 AM [facility] BUN 17 5 - 25 mg/dL LAB CHEMISTRY METHOD 05/06/2025 10:33 AM [facility] Creatinine 0.80 0.50 - 1.10 mg/dL LAB CHEMISTRY METHOD 05/06/2025 10:33 AM [facility] eGFR 82 >=60 mL/min/1. 73m2 LAB CHEMISTRY METHOD 05/06/2025 10:33 AM [facility] Comment:Calculation based on the Chronic Kidney Disease Epidemiology Collaboration (CKD-EPI) equation refit without adjustment for race. BUN/Creatinine Ratio 21.3 LAB CHEMISTRY METHOD 05/06/2025 10:33 AM [facility] Calcium 8.3(L) 8.5 - 10.5 mg/dL LAB CHEMISTRY METHOD 05/06/2025 10:33 AM [facility] Blood Venous blood specimen / Unknown Venipuncture / Unknown 05/06/2025 5:20 AM EDT 05/06/2025 9:23 AM EDT us Sim Brewer MD LAB BLOOD ORDERABLES Final Resu lt [facility] [address] [place] [address], * (ABNORMAL) Complete blood count (05/06/2025 5:20 AM EDT) WBC 4.5(L) 4.8 - 10.8 K/mcL LAB HEMETOLOGY METHOD 05/06/2025 9:54 AM [facility] RBC 3.90 3.80 - 4.80 M/mcL LAB HEMETOLOGY METHOD 05/06/2025 9:54 AM [facility] Hemoglobin 10.9(L) 11.5 - 16.0 g/dL LAB HEMETOLOGY METHOD 05/06/2025 9:54 AM [facility] Hematocrit 34.9(L) 35.0 - 47.0 % LAB HEMETOLOGY METHOD 05/06/2025 9:54 AM [facility] MCV 90.4 79.0 - 98.0 FL LAB HEMETOLOGY METHOD 05/06/2025 9:54 AM [facility] MCH 28.2 27.0 - 32.0 pcg LAB HEMETOLOGY METHOD 05/06/2025 9:54 AM [facility] MCHC 31.2(L) 32.0 - 37.0 g/dL LAB HEMETOLOGY METHOD 05/06/2025 9:54 AM [facility] RDW 14.1 11.0 - 15.0 % LAB HEMETOLOGY METHOD 05/06/2025 9:54 AM [facility] Platelets 191 130 - 400 K/mcL LAB HEMETOLOGY METHOD 05/06/2025 9:54 AM [facility] MPV 11.4(H) 7.0 - 11.0 FL LAB HEMETOLOGY METHOD 05/06/2025 9:54 AM [facility] NRBC 0.0 <1.0 % LAB HEMETOLOGY METHOD 05/06/2025 9:54 AM [facility] NRBC Absolute 0.00 <0.10 K/mcL LAB HEMETOLOGY METHOD 05/06/2025 9:54 AM [facility] Blood Venous blood specimen / Unknown Venipuncture / Unknown 05/06/2025 5:20 AM EDT 05/06/2025 9:23 AM EDT us Sim Brewer MD LAB BLOOD ORDERABLES Final Resu lt [facility] [address] [place] [address], documented in this encounter Visit Diagnoses Diagnosis Essential (primary) hypertension Unspecified essential hypertension documented in this encounter Care Teams Retail Management Keyholder Relationship Specialty Start Date End Date Dylan Cunha MD [address] [facility] [place] [address] PCP - General Internal Medicine 08/01/17 documented as of this encounter
--- OUTSIDE RECORDS SUMMARY | 2025-05-21 12:29 | XMS_ITS | Clinical Summary ---
Author Organization [facility] Address [address] [place] [address] Care Team Providers Care Oil Pump Station Operator Chief Name Role Phone Dylan Cunha MD Primary Care Provider [phone] Allergies Active Allergy Reactions Criticality Noted Date [...] (1 of 2) 2010 Influenza Vaccine (#1) 2025 0, 07/09/2019, 07/14/2018, Additional history exists Pneumococcal [...] age to complete this topic Care Teams Oil Pump Station Operator Chief Relationship Specialty Start Date End Date Dylan Cunha MD [address] [place] [address] PCP - General Internal Medicine 08/01/17
== END 2025-05-21 11:56 | disposition home or self-care (01) ==
LOC: HO.HOS 11:22
PROVIDERS: Visit Provider Orthopaedic Surgery
DX: M25.811 Other specified joint disorders, right shoulder (principal)
CPT/HCPCS: 20610; 99213

== ENCOUNTER → 2025-05-21 11:21 | Outpatient (BNVA) | payer MEDICARE, MEDICAID, SELFPAY | PROVIDERS: Visit Provider Orthopaedic Surgery | DX: M25.811 Other specified joint disorders, right shoulder (principal) | CPT/HCPCS: 20610; 99212; J1010; J2003 ==

== ENCOUNTER 2025-08-21 11:16 | Outpatient (AMB) | payer MEDICARE, MEDICAID, SELFPAY ==
--- NOTE | 2025-08-21 11:29 | MHC.OFFVIS ---
Vital Signs 08/21/25 11:38 Height 5 ft 6 in Weight 295 lb BMI 47.6 Intake Visit Reasons: Right shoulder pain Intake Note: Brenda is a 64 year old female who presents with complaints of right shoulder pain. She describes her pain as achy in nature. Most of the pain is along the lateral aspect of her shoulder. She denies any weakness. She continues with her home stretching program. She has tried Tylenol and anti-inflammatory medicines which gave her mild relief. Allergies adhesive tape Allergy (Intermediate, Verified 08/21/25 11:37) Rash hydromorphone (From Dilaudid) Adverse Reaction (Severe, Verified 08/21/25 11:37) Drowsy succinylcholine Adverse Reaction (Severe, Verified 08/21/25 11:37) Unknown Medication List - Last Reconciled 08/21/25 by Lencho West MD losartan 50 mg PO DAILY peg 3350-electrolytes 236-22.74-6.74 -5.86 gram (GaviLyte-G) mL PO tirzepatide (weight loss) (Zepbound) mg subcut [facility] Social History (Updated 08/21/25 @ 11:38 by CONSTANZA Henderson) Alcohol intake: never Patient Tobacco Use Status: Never used Tobacco Physical Exam Vital Signs: BMI result Body Mass Index 47.6 Const Other: Well-nourished well-developed very friendly female awake alert and oriented x3 in no acute distress Extrem Other: Right shoulder examination shows full range of motion when compared to her left shoulder, positive impingement signs, 5/5 strength with supraspinatus testing, no instability Office Procedures AMB Joint Injection/Aspiration Joint Injection/Aspiration Primary Site: right shoulder Prep: site was prepped using aseptic technique Injected: 40 mg of, DepoMedrol, with 4 mL of and 1% plain lidocaine Procedure: The patient tolerated the procedure well Coding 48171 - Large joint Procedure code (CPT) selection complete Assessment & Plan Assessment & Plan (1) Impingement of right shoulder: Code(s): M25.811 - Other specified joint disorders, right shoulder Category: Medical (2) Right shoulder pain: Code(s): M25.511 - Pain in right shoulder Category: Medical Plan Ms. Pettit presents with right shoulder pain due to impingement syndrome. The risks and benefits of a right shoulder cortisone injection were discussed at length with the patient. The patient wished to proceed. She tolerated the injection well. She will continue with her home stretching program. She will contact me prior to her follow-up appointment in 3 months should any questions or concerns arise. Feel free to call me at any time should questions regarding her orthopedic management arise. I spent 20 minutes in reviewing the patient's records and imaging studies, seeing the patient and documenting in the medical record. Orders: Orders AMB Joint Injection/Aspiration Today M25.811 - Other specified joint disorders, right shoulder Coding Level of Care Code Est Pt Level 3 (73647) Complex EM visit Add On G2211 Diagnoses Impingement of right shoulder M25.811 Right shoulder pain M25.511 CPT Codes Coding - 87818 Large joint: 85191 - Large joint ([id number])
[2025-08-21 11:38] VITALS: BMI 47.6
--- OUTSIDE RECORDS SUMMARY | 2025-08-21 13:59 | XMS_ITS | Clinical Summary ---
Author Organization [facility] Address [address] [place] [address] Care Team Providers Care Recorder Helper Seismograph Name Role Phone Dylan Cunha MD Primary Care Provider [phone] Allergies Active Allergy Reactions Criticality Noted Date [...] age to complete this topic Care Teams Recorder Helper Seismograph Relationship Specialty Start Date End Date Dylan Cunha MD [address] [place] [address] PCP - General Internal Medicine 08/01/17
--- OUTSIDE RECORDS SUMMARY | 2025-08-21 13:59 | XMS_ITS | Encounter Summary ---
Author Organization [facility] Address [address] [place] [address] Care Team Providers Care Telegraphic Instrument Supervisor Name Role Phone Dylan Cunha MD Primary Care Provider [phone] Encounter Details Date Type Department Care Team (Late st Contact Info) Description 04/22/2025 Lab Requisition [facility] - Main Lab [address] [place] [address] Sim Brewer MD [address] [place] [address] Essential (primary) hypertension Social History Tobacco Use [...] Associated Diagnosis Comments COMPLETE BLOOD COUNT Routine 04/22/2025 4:51 AM EDT Essential (primary) hypertension BASIC METABOLIC PANEL Routine 04/22/2025 4:51 AM EDT Essential (primary) hypertension documented in this encounter Results * Basic metabolic panel (04/22/2025 4:51 AM EDT) Sodium 141 133 - 145 mmol/L LAB CHEMISTRY METHOD 04/22/2025 11:57 AM EDT [facility] Potassium 3.8 3.5 - 5.5 mmol/L LAB CHEMISTRY METHOD 04/22/2025 11:57 AM EDT [facility] Chloride 105 96 - 110 mmol/L LAB CHEMISTRY METHOD 04/22/2025 11:57 AM [facility] CO2 30 21 - 32 mmol/L LAB CHEMISTRY METHOD 04/22/2025 11:57 AM [facility] Anion Gap 6 3 - 11 LAB CHEMISTRY METHOD 04/22/2025 11:57 AM [facility] Glucose 73 70 - 100 mg/dL LAB CHEMISTRY METHOD 04/22/2025 11:57 AM [facility] BUN 16 5 - 25 mg/dL LAB CHEMISTRY METHOD 04/22/2025 11:57 AM [facility] Creatinine 0.81 0.50 - 1.10 mg/dL LAB CHEMISTRY METHOD 04/22/2025 11:57 AM [facility] eGFR 81 >=60 mL/min/1. 73m2 LAB CHEMISTRY METHOD 04/22/2025 11:57 AM [facility] Comment:Calculation based on the Chronic Kidney Disease Epidemiology Collaboration (CKD-EPI) equation refit without adjustment for race. BUN/Creatinine Ratio 19.8 LAB CHEMISTRY METHOD 04/22/2025 11:57 AM [facility] Calcium 8.5 8.5 - 10.5 mg/dL LAB CHEMISTRY METHOD 04/22/2025 11:57 AM [facility] Blood Venous blood specimen / Unknown Venipuncture / Unknown 04/22/2025 4:51 AM EDT 04/22/2025 9:25 AM EDT us Sim Brewer MD LAB BLOOD ORDERABLES Final Resu lt [facility] [address] [place] [address], * (ABNORMAL) Complete blood count (04/22/2025 4:51 AM EDT) WBC 4.0(L) 4.8 - 10.8 K/mcL LAB HEMETOLOGY METHOD 04/22/2025 9:52 AM [facility] RBC 3.90 3.80 - 4.80 M/mcL LAB HEMETOLOGY METHOD 04/22/2025 9:52 AM [facility] Hemoglobin 11.2(L) 11.5 - 16.0 g/dL LAB HEMETOLOGY METHOD 04/22/2025 9:52 AM [facility] Hematocrit 35.7 35.0 - 47.0 % LAB HEMETOLOGY METHOD 04/22/2025 9:52 AM [facility] MCV 90.8 79.0 - 98.0 FL LAB HEMETOLOGY METHOD 04/22/2025 9:52 AM [facility] MCH 28.5 27.0 - 32.0 pcg LAB HEMETOLOGY METHOD 04/22/2025 9:52 AM [facility] MCHC 31.4(L) 32.0 - 37.0 g/dL LAB HEMETOLOGY METHOD 04/22/2025 9:52 AM [facility] RDW 14.2 11.0 - 15.0 % LAB HEMETOLOGY METHOD 04/22/2025 9:52 AM [facility] Platelets 188 130 - 400 K/mcL LAB HEMETOLOGY METHOD 04/22/2025 9:52 AM [facility] MPV 11.1(H) 7.0 - 11.0 FL LAB HEMETOLOGY METHOD 04/22/2025 9:52 AM [facility] NRBC 0.0 <1.0 % LAB HEMETOLOGY METHOD 04/22/2025 9:52 AM [facility] NRBC Absolute 0.00 <0.10 K/mcL LAB HEMETOLOGY METHOD 04/22/2025 9:52 AM [facility] Blood Venous blood specimen / Unknown Venipuncture / Unknown 04/22/2025 4:51 AM EDT 04/22/2025 9:25 AM EDT us Sim Brewer MD LAB BLOOD ORDERABLES Final Resu lt [facility] [address] [place] [address], documented in this encounter Visit Diagnoses Diagnosis Essential (primary) hypertension Unspecified essential hypertension documented in this encounter Care Teams Telegraphic Instrument Supervisor Relationship Specialty Start Date End Date Dylan Cunha MD [address] [facility] [place] [address] PCP - General Internal Medicine 08/01/17 documented as of this encounter
--- OUTSIDE RECORDS SUMMARY | 2025-08-21 13:59 | XMS_ITS | Encounter Summary ---
Author Organization [facility] Address [address] [place] [address] Care Team Providers Care Credit Control Assistant Name Role Phone Dylan Cunha MD Primary Care Provider [phone] Encounter Details Date Type Department Care Team (Late st Contact Info) Description 05/04/2025 Lab Requisition [facility] - Main Lab [address] [place] [address] Sim Brewer MD [address] [place] [address] Essential (primary) hypertension Social History Tobacco Use [...] LAB CHEMISTRY METHOD 05/06/2025 10:33 AM EDT [facility] Potassium 3.5 3.5 - 5.5 mmol/L LAB CHEMISTRY METHOD 05/06/2025 10:33 AM EDT [facility] Chloride 108 96 - 110 mmol/L [...] MD LAB BLOOD ORDERABLES Final Resu lt [facility] [address] [place] [address], * (ABNORMAL) Complete blood count (05/06/2025 5:20 [...] MD LAB BLOOD ORDERABLES Final Resu lt [facility] ([facility] [address] [place] [address], documented in this encounter Visit Diagnoses Diagnosis Essential (primary) hypertension Unspecified essential hypertension documented in this encounter Care Teams Credit Control Assistant Relationship Specialty Start Date End Date Dylan Cunha MD [address] [facility] [place] [address] PCP - General Internal Medicine 08/01/17 documented as of this encounter
--- OUTSIDE RECORDS SUMMARY | 2025-08-21 13:59 | XMS_ITS | Data Portability ---
Author Organization [facility] Address [address] [facility] [address] [place] [address] Care Team Providers Care Rn Cardiac Cath Name Role Phone SALAZAR BLILS Primary Care Provider Assessment Encounter Date Assessment [...] Lab None recorded. Referral neurologist referral 2015 [facility], [address], [address], 17:02:56 Procedures None recorded. Surgeries None recorded. Imaging None recorded. Medication Orders Gralise 600 mg tablet,exte nded release 2016 017 [email or web address] Not available 13:55:15 Patient TargetsNo targets recorded. Patient Instructions Encounter Date Encounter Id Patient Instructions Last Modified By Organization Details Last Modified Time 08/17/2016 [id number] She was advised to continue with activities as tolerated. [email or web address] Not available 08/22/2016 15:21:27 09/24/2016 [id number] She was advised to continue with activities as tolerated. [email or web address] Not available 10/07/2016 14:41:56 10/28/2016 [id number] She was advised to continue with activities as tolerated. [email or web address] Not available 10/29/2016 09:22:47 12/16/2016 [id number] She was advised to continue with activities [...] (PROC ) No observ ation record ed. [email or web address] [id number] [place], [address], 09/27/2016 14:17:15 Result Notes None recorded. Procedures [...] [facility] 08/17/2016 14:39:54 Imaging Results None recorded. Procedure Notes None recorded. Medical Equipment None Reported. Allergies Allergen ID Allergen Name Allergen Category Reaction Reaction Severity Criticality Documentation Date Start Date Code Code System Note Provider Name and Address Organization Details Recorded Time 53091 adhesive environme nt,medica tion other Not available Not available 08/17/2016 Skin break down Lexus william [place] - [facility] 6 14:29:32 71505 succinylc holine Not available Not available Not available Not available 08/17/2016 61227 RxNorm Deep anest heia Lexus william [place] - [facility] 6 14:30:27 Medications Name Sig [...] Not Available Not Available Vitals Date Recorded Body height Heart rate Oxygen saturation Oxygen saturation in Arterial blood by Pulse oximetry Systolic And Diastolic Provider Name and Address Organization Details Last Updated DateTime 7 167.64 cm 77 /min 98 % 98 % 161/66 mm[Hg] [facility] 7 13:35:26 Date Recorded Body height Heart rate Oxygen saturation Oxygen saturation in Arterial blood by Pulse oximetry Systolic And Diastolic Provider Name and Address Organization Details Last Updated DateTime 7 167.64 cm 88 /min 97 % 97 % 160/59 mm[Hg] [facility]us [facility] 7 13:52:24 Date Recorded Heart rate Oxygen saturation Oxygen saturation in Arterial blood by Pulse oximetry Body height Body weight Body mass index (BMI) Systolic And Diastolic Provider Name and Address Organization Details Last Updated DateTime 6 92 /min 97 % 97 % 167.64 cm 247226. 66 g 57.9 kg/m2 189/81 mm[Hg] Lexus Brunson [facility] 6 14:25:47 Date Recorded Body height Heart rate Oxygen saturation Oxygen saturation in Arterial blood by Pulse oximetry Systolic And Diastolic Provider Name and Address Organization Details Last Updated DateTime 6 167.64 cm 87 /min 98 % 98 % 172/61 mm[Hg] Lexus Brunson [facility] 6 10:55:47 Social History Question Answer Notes LastModified by Organizat ion Details LastModified Time Tobacco Smoking Status Never Smoker Not Available [facility] 07/25/2020 03:16:12 Which Illicit Or Recreational Drugs Have You Used? No [id number] Information not available 07/25/2020 Live Alone Or With Others? Alone Information not available 08/17/2016 Marital Status Informatio n not available 08/17/2016 Sex: Unknown Functional Status Question Answer Note LastModified by Organization D etails LastModified Time What is your level of alcohol consumption? None [id number] Information not available 07/25/2020 Are you currently employed? No [id number] Information not available 07/25/2020 Mental Status None recorded. Family History Relationship [...] Diagnosis SNOMED-CT Code Diagnosis ICD10 Code Diagnosis IMO Codes Diagnosis Note [id number] Shahram Song MD PAIN OFFICE [address] [facility] [place] [address] 08/17/2016 13:33:46 08/22/2016 15:28:24 Pain in lower limb 48519071 M79.604 Peripheral neuropathic pain 022796377 M79.2 [id number] Shahram Song MD PAIN OFFICE [address] [facility] [place] [address] 09/24/2016 10:49:06 10/07/2016 14:52:21 Pain in lower limb 75703438 M79.604 Peripheral neuropathic pain 433009680 M79.2 [id number] Shahram Song MD PAIN OFFICE [address] [facility] [place] [address] 10/28/2016 13:14:48 10/29/2016 09:33:55 Pain in lower limb 11800528 M79.604 Peripheral neuropathic pain 110485852 M79.2 23122 Shahram Song MD PAIN OFFICE [address] [facility] [place] [address] 12/16/2016 13:13:09 12/30/2016 20:38:30 Pain in lower limb 47245155 M79.604 Peripheral neuropathic pain 919138628 M79.2 Health Concerns Section Related Observation LastModified by Organization Detai ls LastModified Time None Recorded Concern Status LastModified by Organization Details LastModified Time None Recorded Advance Directives Directive None Recorded Payers Insurance Date Sequence Insurance Name Policy Number Policy Cardenas Covered Member ID Cardenas Member ID Guarantor Name 12/13/2016 1 [place] [employer] Brenda Pettit [id number] Brenda Pettit 12/13/2016 2 [place] Brenda Pettit [id number] Brenda Pettit Notes Date Note Type Note Provider Name [...] or bowel incontinence.She had been seen at [facility] pain management in 2011 and had a lateral femoral cutaneous nerve block under ultrasound guidance by Dr. Porter which she states did not help.She takes Ibuprofen, vicodin and oxcarbazepine with some pain benefit. 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 Shahram Song MD [address] [facility] , [address], [place], [address], [facility] 10/15/2016 11:22:01 10/28/2016 text/html She [...] or bowel incontinence. Shahram Song MD [address] [facility] , [address], [place], [address], [facility] 10/29/2016 11:55:48 12/16/2016 text/html She [...] RFA or cryoablation. Shahram Song MD [address] [facility] , [address], [place], [address], [facility] 01/03/2017 09:47:30 OBGyn Episode No OBEpisode recorded.
--- OUTSIDE RECORDS SUMMARY | 2025-08-21 13:59 | XMS_ITS | Encounter Summary ---
Author Organization [facility] Address [address] [place] [address] Care Team Providers Care Tooth Inspector Name Role Phone Dylan Cunha MD Primary Care Provider [phone] Encounter Details Date Type Department Care Team (Latest Contact Info) Description 04/26/[address] [facility] - Main Lab [address] [facility] [place] [address] Sim Brewer MD [address] [place] [id number] Type 2 diabetes mellitus without complications (CMS/HCC V24, CMS/HCC V28) Social History Tobacco Use Types Packs/Day Years [...] Procedure Name Priority Date/Time Associated Diagnosis Comments HEMOGLOBIN A1C Routine 04/26/2025 5:06 AM EDT Type 2 diabetes mellitus without complications (CMS/HCC V24, CMS/FORMERLY [facility] V28) documented in this encounter Results * Hemoglobin A1c (04/26/2025 5:06 AM EDT) Hemoglobin A1C 5.0 <6.5 % LAB CHEMISTRY METHOD 04/26/2025 1:42 PM EDT [facility] Mean Bld Glu Estim. 97 mg/dL LAB CHEMISTRY METHOD 04/26/2025 1:42 PM T [facility] Blood Venous blood specimen / Unknown Venipuncture / Unknown 04/26/2025 5:06 AM EDT 04/26/2025 9:59 AM EDT us Sim Brewer MD LAB BLOOD ORDERABLES [facility] [address] [place] [address], documented in this encounter Visit Diagnoses Diagnosis Type 2 diabetes mellitus without complications (CMS/HCC V24, CMS/HCC V28) documented in this encounter Care Teams Tooth Inspector Relationship Specialty Start Date End Date Dylan Cunha MD [address] [facility] [place] [address] PCP - General Internal Medicine 08/01/17 documented as of this encounter
--- OUTSIDE RECORDS SUMMARY | 2025-08-21 13:59 | XMS_ITS | Clinical Summary ---
Author Organization [address] Address [address] [place] [address] Phone Care Team Providers Care Strawberry Grower Name Role Phone Dylan Cunha MD Primary Care Provider [phone] Surgical History Surgery Date Site/Laterality Comments JOINT [...] Last Done Comments Breast Cancer Screening 1960 Colorectal Cancer Screening: Colonoscopy 1960 DTaP,Tdap,and Td Vaccines (1 - Tdap) 1979 Pneumococcal Vaccine: 50+ Ye ars (1 of 2 - PCV) 1979 Cervical Cancer Screening: P ap Smear 1981 Zoster Vaccines (1 of 2) 2010 HIV Screening 09/07/2022 Hepatitis C Screening 09/07/2022 Medicare Annual Wellness Visit 09/07/2022 Social Influencers of Health Screening 09/07/2022 Depression Screening 10/10/2024 COVID-19 Vaccine ( - 2024-2 6 season) 2025 Influenza Vaccine (#1) 2025 RSV Immunization Adult Patie nts (1 [...] on patient's age to complete this topic Insurance MEDICA[place] - [place] MEDICARE Advance Directives Documents on File Type Date Recorded Patient Arc Trimmer Expl anation Health Care Decision (hx) 08/11/2020 [...] (hx) 08/11/2020 AD MEDINA DIRECTIVE Care Teams Strawberry Grower Relationship Specialty Start Date End Date [facility] [address] [facility] [address] PCP - General Internal Medicine 08/01/17
--- OUTSIDE RECORDS SUMMARY | 2025-08-21 13:59 | XMS_ITS | Encounter Summary ---
Author Organization [facility] Address [address] [place] [address] Care Team Providers Care Health Occupations Instructor Name Role Phone Dylan Cunha MD Primary Care Provider [phone] Encounter Details Date Type Department Care Team (Late st Contact Info) Description 04/26/2025 Lab Requisition [facility] - Main Lab [address] [place] [address] Sim Brewer MD [address] [place] [address] Essential (primary) hypertension Social History Tobacco Use [...] Associated Diagnosis Comments COMPLETE BLOOD COUNT Routine 04/29/2025 5:09 AM EDT Essential (primary) hypertension BASIC METABOLIC PANEL Routine 04/29/2025 5:09 AM EDT Essential (primary) hypertension documented in this encounter Results * (ABNORMAL) Basic metabolic panel (04/29/2025 5:09 AM EDT) Sodium 141 133 - 145 mmol/L LAB CHEMISTRY METHOD 04/29/2025 9:40 AM EDT [facility] Potassium 3.7 3.5 - 5.5 mmol/L LAB CHEMISTRY METHOD 04/29/2025 9:40 AM EDT [facility] Chloride 109 96 - 110 mmol/L LAB CHEMISTRY METHOD 04/29/2025 9:[address] [facility] CO2 27 21 - 32 mmol/L LAB CHEMISTRY METHOD 04/29/2025 9:[address] [facility] Anion Gap 5 3 - 11 LAB CHEMISTRY METHOD 04/29/2025 9:[address] [facility] Glucose 77 70 - 100 mg/dL LAB CHEMISTRY METHOD 04/29/2025 9:[address] [facility] BUN 18 5 - 25 mg/dL LAB CHEMISTRY METHOD 04/29/2025 9:[address] [facility] Creatinine 0.79 0.50 - 1.10 mg/dL LAB CHEMISTRY METHOD 04/29/2025 9:[address] [facility] eGFR 84 >=60 mL/min/1. 73m2 LAB CHEMISTRY METHOD 04/29/2025 9:[address] [facility] Comment:Calculation based on the Chronic Kidney Disease Epidemiology Collaboration (CKD-EPI) equation refit without adjustment for race. BUN/Creatinine Ratio 22.8 LAB CHEMISTRY METHOD 04/29/2025 9:[address] [facility] Calcium 8.0(L) 8.5 - 10.5 mg/dL LAB CHEMISTRY METHOD 04/29/2025 9:[address] [facility] Blood Venous blood specimen / Unknown Venipuncture / Unknown 04/29/2025 5:09 AM EDT 04/29/2025 8:40 AM EDT us Sim Brewer MD LAB BLOOD ORDERABLES Final Resu lt [facility] [address] [place] [address], * (ABNORMAL) Complete blood count (04/29/2025 5:09 AM EDT) WBC 6.1 4.8 - 10.8 [facility] METHOD 04/29/2025 9:[address] [facility] RBC 4.00 3.80 - 4.80 M/mcL LAB HEMETOLOGY METHOD 04/29/2025 9:[address] [facility] Hemoglobin 11.1(L) 11.5 - 16.0 g/dL LAB HEMETOLOGY METHOD 04/29/2025 9:[address] [facility] Hematocrit 35.1 35.0 - 47.0 % LAB HEMETOLOGY METHOD 04/29/2025 9:[address] [facility] MCV 88.9 79.0 - 98.0 FL LAB HEMETOLOGY METHOD 04/29/2025 9:[address] [facility] MCH 28.1 27.0 - 32.0 pcg LAB HEMETOLOGY METHOD 04/29/2025 9:[address] [facility] MCHC 31.6(L) 32.0 - 37.0 g/dL LAB HEMETOLOGY METHOD 04/29/2025 9:[address] [facility] RDW 13.8 11.0 - 15.0 % LAB HEMETOLOGY METHOD 04/29/2025 9:[address] [facility] Platelets 180 130 - 400 K/mcL LAB HEMETOLOGY METHOD 04/29/2025 9:[address] [facility] MPV 11.4(H) 7.0 - 11.0 FL LAB HEMETOLOGY METHOD 04/29/2025 9:[address] [facility] NRBC 0.0 <1.0 % LAB HEMETOLOGY METHOD 04/29/2025 9:[address] [facility] NRBC Absolute 0.00 <0.10 K/mcL LAB HEMETOLOGY METHOD 04/29/2025 9:[address] [facility] Blood Venous blood specimen / Unknown Venipuncture / Unknown 04/29/2025 5:09 AM EDT 04/29/2025 8:40 AM EDT us Sim Brewer MD LAB BLOOD ORDERABLES Final Resu lt [facility] [address] [place] [address], documented in this encounter Visit Diagnoses Diagnosis Essential (primary) hypertension Unspecified essential hypertension documented in this encounter Care Teams Health Occupations Instructor Relationship Specialty Start Date End Date Dylan Cunha MD [address] [facility] [address] PCP - General Internal Medicine 08/01/17 documented as of this encounter
== END 2025-08-21 11:51 | disposition home or self-care (01) ==
LOC: HO.HOS 11:17
PROVIDERS: Visit Provider Orthopaedic Surgery
DX: M25.811 Other specified joint disorders, right shoulder (principal); M25.511 Pain in right shoulder
CPT/HCPCS: 20610; 99213

== ENCOUNTER → 2025-08-21 11:16 | Outpatient (BNVA) | payer MEDICARE, MEDICAID, SELFPAY | PROVIDERS: Visit Provider Orthopaedic Surgery | DX: M25.811 Other specified joint disorders, right shoulder (principal); M25.511 Pain in right shoulder | CPT/HCPCS: 20610; 99212; J1010; J2003 ==